=== PATIENT | male | born 1955 | race Caucasian/White ===

== ENCOUNTER 2022-07-20 16:56 | Inpatient (IN) | payer MEDICARE, MEDICAID ==
[~2022-07-20] VITALS: Ht 185.4 cm; Wt 106.6 kg
[2022-07-20] MEDS: INSULIN GLARGINE,HUM 300 UNITS/3 ML CARTRIDGE SQ SCH (00:30)
[2022-07-20] MEDS ORDERED: ASPI81TA31 PO (17:33)
[2022-07-20] MEDS ORDERED: INSU100V7 SQ ×2 (17:33)
--- NOTE | 2022-07-20 17:34 | NUR ---
PT DOES NOT REMEMBER DOSAGES AND NAMES OF HIS HOME MEDICATION.
[2022-07-20 17:51] LABS: HEMATOCRIT 43.5 % (36.7-47.1); MEAN CORPUSCULAR HEMOGLOBIN 28.9 uug (23.8-33.4); MEAN CORPUSCULAR VOLUME 85.6 fL (73.0-96.2); PLATELET COUNT (AUTO) 176 K/uL (152-348)
[2022-07-20 18:00] LABS: CARBON DIOXIDE 29 mmol/L (21-32); CHLORIDE 103 mmol/L (98-107); CREATININE 1.2 mg/dL (0.6-1.3); GLUCOSE 70 mg/dL (74-106); POTASSIUM 3.9 mmol/L (3.5-5.1); UREA NITROGEN, BLOOD 30 mg/dL (7-18)
--- NOTE | 2022-07-20 19:00 | NUR ---
Received report from Benny TEAGUE.
[2022-07-20] MEDS ORDERED: ONDANSETRON 4 MG/2 ML VIAL IV PRN (21:00)
[2022-07-20] MEDS ORDERED: ATORVASTATIN 20 MG TABLET PO SCH (21:00)
[2022-07-20] MEDS ORDERED: DEXTROSE 50% 50 ML DISP.SYRIN IV PRN (21:00)
[2022-07-20] MEDS ORDERED: ACETAMINOPHEN 325 MG TABLET PO PRN (21:00)
[2022-07-20] MEDS: BLOOD SUGAR DIAGNOSTIC 1 EACH STRIP VI SCH (21:00)
[2022-07-20] MEDS ORDERED: INSULIN REGULAR, HUMAN 300 UNIT/3 ML VIAL SQ PRN (21:00)
[2022-07-20] MEDS ORDERED: MAGNESIUM HYDROXIDE 30 ML LIQUID UDC PO PRN (21:00)
[2022-07-20] MEDS ORDERED: REMEDY ESSENTIAL ZINC PASTE 113 GM TP PRN (21:00)
--- NOTE | 2022-07-20 21:00 | NUR ---
Patient ambulatory with steady gait. NAD noted. A/Ox4.
--- NOTE | 2022-07-20 22:50 | NUR ---
Pt. admitted to TELE rm 302, under care of Dr. Trinidad Belongs List completed Sherley RN aware of patient's arrival to unit.
[2022-07-20 23:02] VITALS: BP 110/57
[2022-07-20] MEDS: MORPHINE SULFATE 2 MG/1 ML DISP.SYRIN IV PRN (23:28)
[2022-07-21] MEDS ORDERED: INSULIN GLARGINE,HUM 300 UNITS/3 ML CARTRIDGE SQ ONE ×2 (01:28→01:29)
[2022-07-21 04:00] VITALS: BP 115/76
[2022-07-21] MEDS: MORPHINE SULFATE 2 MG/1 ML DISP.SYRIN IV PRN (06:42)
[2022-07-21] MEDS: BLOOD SUGAR DIAGNOSTIC 1 EACH STRIP VI SCH ×4 (06:57→20:12)
--- NOTE | 2022-07-21 07:21 | NUR ---
SHIFT NOTE; RECEIVED FROM ER A 67 Y/O MALE ALERT AND ORIENTED X4 PT C/O PAIN CALLED DR ELI SHE ORDER 2MG OF MORPHINE WHICH WAS GIVEN TWICE DURING THE SHIFT NO SIGNS OF DISTRESS NOTED. PT IS ON TELEMONITOR WHICH IS SHOWING SR RHYTHM. PT WAS GIVEN FOOD AND ACCUCHECK WAS TAKEN BLOOD SUGAR IS 126 AND NO SIGNS OF DIABETIC REACTION NOTED. PT AM BLOOD SUGAR IS 59 PT C/O BEING HUNGRY GAVE SANDWICH AND CRACKER ALONG WITH JUICE WILL CHECK BLOOD SUGAR AGAIN.NOW IT IS 172 NO SIGNS OF DIABETIC REACTION. WILL ENDORSE TO AM NURSE
[2022-07-21 07:26] LABS: HEMATOCRIT 42.1 % (36.7-47.1); MEAN CORPUSCULAR HEMOGLOBIN 29.3 uug (23.8-33.4); MEAN CORPUSCULAR VOLUME 85.3 fL (73.0-96.2); PLATELET COUNT (AUTO) 169 K/uL (152-348)
[2022-07-21 07:38] LABS: CREATININE 1.2 mg/dL (0.6-1.3); PHOSPHOROUS 4.1 mg/dL (2.5-4.9); POTASSIUM 3.8 mmol/L (3.5-5.1)
[2022-07-21] MEDS: INSULIN GLARGINE,HUM 300 UNITS/3 ML CARTRIDGE SQ SCH ×2 (07:55→20:15)
[2022-07-21] MEDS: ASPIRIN 81 MG TAB.CHEW PO SCH (08:43)
[2022-07-21] MEDS: ENOXAPARIN SODIUM 40 MG/0.4 ML DISP.SYRIN SQ SCH (08:44)
[2022-07-21] MEDS: HYDROMORPHONE 1 MG/1 ML DISP.SYRIN IVP PRN ×4 (08:44→23:38)
--- NOTE | 2022-07-21 08:54 | NUR ---
Pt said he had chest pain and that morphine didn't help him. I told Dr Esteban and was ordered dilaudid 0.5 mg
[2022-07-21 11:26] VITALS: BP 119/63
[2022-07-21 15:40] VITALS: BP 120/69
[2022-07-21] MEDS ORDERED: IBUPROFEN 400 MG TABLET PO PRN (16:45)
--- NOTE | 2022-07-21 19:30 | NUR ---
Received patient lying in bed. AAOx4. In no acute distress. Denies any CP. Complain of pain on right shoulder and arm area, will provide pain medication per order. IV site on right AC intact and patent. NSR on tele with HR of 62/min. Other needs assessed and attended to. Safety measure initiated and call light within reached.
[2022-07-21 20:00] VITALS: BP 118/59
[2022-07-21] MEDS: glipiZIDE 10 MG TABLET PO SCH (20:07)
[2022-07-21] MEDS: GABAPENTIN 300 MG CAPSULE PO SCH (20:07)
--- NOTE | 2022-07-21 20:16 | NUR ---
FSBS 109mg/dl at this time. Patient refused Lantus insulin 52 units.
[2022-07-21] MEDS ORDERED: SIMVASTATIN 20 MG TABLET PO SCH (21:00)
[2022-07-22] VITALS: BP 122/52
[2022-07-22 04:00] VITALS: BP 122/65
--- NOTE | 2022-07-22 05:27 | NUR ---
In no acute distress. Slept well during the night. Dilaudid given for complain of pain on right shoulder and arm area and effective. IV site on right AC remains intact and patent. NSR on tele with HR of 72/min. Needs attended to and met. Safety measure maintained and call light within reached.
[2022-07-22] MEDS: HYDROMORPHONE 1 MG/1 ML DISP.SYRIN IVP PRN (06:15)
[2022-07-22] MEDS: BLOOD SUGAR DIAGNOSTIC 1 EACH STRIP VI SCH (06:36)
--- NOTE | 2022-07-22 06:37 | NUR ---
check FSBS was 56mg/dl. [place] juice with sugar given. FSBS recheck after 15 mins and went up to 62. Held miguel angel ayala. Addendum: 07/22/22 at 0656 by JORJE ROCK RN FSBS 58
[2022-07-22] MEDS: INSULIN GLARGINE,HUM 300 UNITS/3 ML CARTRIDGE SQ SCH (06:38)
--- NOTE | 2022-07-22 06:39 | NUR ---
Dr Esteban into visit.
[2022-07-22] MEDS ORDERED: PANTOPRAZOLE SODIUM 40 MG TABLET.DR PO SCH (07:00)
[2022-07-22] MEDS: GABAPENTIN 300 MG CAPSULE PO SCH ×2 (08:13→08:25)
[2022-07-22] MEDS: ASPIRIN 81 MG TAB.CHEW PO SCH (08:13)
[2022-07-22] MEDS: glipiZIDE 10 MG TABLET PO SCH (08:14)
[2022-07-22] MEDS: ENOXAPARIN SODIUM 40 MG/0.4 ML DISP.SYRIN SQ SCH (08:20)
[2022-07-22] MEDS ORDERED: LOSARTAN POTASSIUM 50 MG TABLET PO SCH (09:00)
[2022-07-22] MEDS ORDERED: HYDROCHLOROTHIAZIDE 12.5 MG CAPSULE PO SCH (09:00)
[2022-07-22] MEDS ORDERED: FENOFIBRATE NANOCRYSTALLIZED 145 MG TABLET PO SCH (09:00)
[2022-07-22] MEDS ORDERED: AMLODIPINE 10 MG TABLET PO SCH (09:00)
[2022-07-22] MEDS ORDERED: ERGOCALCIFEROL 50,000 UNIT CAPSULE PO SCH (09:00)
[2022-07-22] MEDS ORDERED: METH4TAB3 PO (10:58)
--- NOTE | 2022-07-22 11:15 | NUR ---
Pt is stable and getting discharged home today.
[2022-07-22 11:22] VITALS: BP 134/69
--- NOTE | 2022-07-22 11:33 | NUR ---
patient left home by [employer]. Stable at this time and had no pain or distress at this time.
== END 2022-07-22 11:45 | disposition home or self-care (01) | DRG 351 ==
LOC: ER 16:56 → TELE3 19:16
PROVIDERS: ADMIT Nurse Practitioner Acute Care; ATTEND Nurse Practitioner Acute Care
DX: M19.011 Primary osteoarthritis, right shoulder (principal); N17.9 Acute kidney failure, unspecified; D68.69 Other thrombophilia; R07.89 Other chest pain; E11.9 Type 2 diabetes mellitus without complications; Z79.4 Long term (current) use of insulin; Z79.82 Long term (current) use of aspirin; Z86.16 Personal history of COVID-19; Z87.891 Personal history of nicotine dependence; M89.711 Major osseous defect, right shoulder region; Z20.822 Contact with and (suspected) exposure to COVID-19; I10 Essential (primary) hypertension
CPT/HCPCS: 36415; 71045; 73200; 83735; 84100; 84484; 85025; 93005; 93307; G0378; J1170; J1650; J1815; J2270